=== PATIENT | female | born 1990 | race Caucasian/White ===

== ENCOUNTER 2017-01-20 07:22 | Emergency (ER) | payer BC, OTHER ==
[~2017-01-20] VITALS: Ht 162.6 cm; Wt 62.1 kg
[~2017-01-20 07:22] MED LIST: OMEP20TA62 PO
[2017-01-20] MEDS ORDERED: PANTOPRAZOLE 80 MG in SODIUM CHLORIDE 0.9% 100 ML IV SCH (07:43)
[2017-01-20] MEDS ORDERED: SODIUM CHLORIDE 0.9% 1,000 ML IV ONE (07:43)
[2017-01-20] MEDS ORDERED: PANTOPRAZOLE 80 MG in SODIUM CHLORIDE 0.9% 50 ML IVPB ONE (07:43)
[2017-01-20] MEDS ORDERED: SODIUM CHLORIDE FLUSH 10ML SYR IVF ONE (08:00)
[2017-01-20] MEDS ORDERED: SODIUM CHLORIDE 0.9% 1,000ML IVBOLUS ONE (08:00)
[2017-01-20 08:21] LABS: HEMOGLOBIN 14.4 g/dL (11.7-16.4)
[2017-01-20 08:32] LABS: ASPARTATE AMINO TRANSFERASE 12 U/L (15-37); BLOOD UREA NITROGEN 13 mg/dL (7-18)
[2017-01-20] MEDS ORDERED: ONDANSETRON 2MG/ML, 2ML IVPush ONE (09:30)
[2017-01-20] MEDS ORDERED: MAALOX/HYOSCYAMINE/LIDOCAINE 45 ML BOTTLE PO ONE (09:30)
[2017-01-20] MEDS ORDERED: ONDANSETRON 2MG/ML, 2ML ONE (09:32)
[2017-01-20] MEDS ORDERED: MAALOX/HYOSCYAMINE/LIDOCAINE 45 ML BOTTLE ONE (09:32)
[2017-01-20] MEDS ORDERED: PROPOFOL 10 MG/ML, 20ML ONE (11:11)
[2017-01-20] MEDS ORDERED: PROPOFOL 10 MG/ML, 20ML IVP ONE (11:30)
[2017-01-20 13:08] VITALS: BP 101/50
== END 2017-01-20 13:10 | disposition home or self-care (01) ==
LOC: ED 08:33
DX: K29.00 Acute gastritis without bleeding (principal)
CPT/HCPCS: 36415; 44360; 80053; 83690; 84703; 85025; 85610; 85730; 86677; 96365; 96366; 96375; 99152; 99153; 99285; C9113; J2405; J7030

== ENCOUNTER 2017-02-10 19:15 | Emergency (ER) | payer BC ==
[~2017-02-10] VITALS: Ht 162.6 cm; Wt 61.2 kg
[2017-02-10] MEDS ORDERED: ONDANSETRON 2MG/ML, 2ML IVPush ONE (19:30)
[2017-02-10] MEDS ORDERED: MORPHINE SULFATE 4 MG/ML, 1ML IVPush PRN (19:30)
[2017-02-10] MEDS ORDERED: SODIUM CHLORIDE FLUSH 10ML SYR IVF ONE (19:30)
[2017-02-10 19:56] LABS: HEMOGLOBIN 14.7 g/dL (11.7-16.4)
[2017-02-10 20:09] LABS: ASPARTATE AMINO TRANSFERASE 14 U/L (15-37); BLOOD UREA NITROGEN 8 mg/dL (7-18)
[2017-02-10] MEDS ORDERED: ONDANSETRON ODT 4 MG ONE (20:30)
[2017-02-10] MEDS ORDERED: HYDROmorphone 1 MG/ML, 1ML ONE (20:30)
[2017-02-10] MEDS ORDERED: ONDANSETRON ODT 4 MG PO ONE (20:30)
[2017-02-10] MEDS ORDERED: HYDROmorphone 1 MG/ML, 1ML IM ONE (20:30)
[2017-02-10 21:36] VITALS: BP 122/64
== END 2017-02-10 21:50 | disposition home or self-care (01) ==
LOC: ED 21:24
DX: R10.11 Right upper quadrant pain (principal); K25.7 Chronic gastric ulcer without hemorrhage or perforation; K26.7 Chronic duodenal ulcer without hemorrhage or perforation
CPT/HCPCS: 36415; 76700; 80053; 81003; 83690; 84703; 85025; 93005; 96372; 99285; J1170; Q0162

== ENCOUNTER → 2017-03-09 | Outpatient (CLI) | payer BC ==
[~2017-03-09] MED LIST changes: +OMNIPAQUE 350 MG/ML, 100ML BOTTLE ONE
== END | disposition home or self-care (01) ==
LOC: CFH 08:27
PROVIDERS: ATTEND Family Medicine
DX: R10.11 Right upper quadrant pain (principal)
CPT/HCPCS: 74177; Q9967

== ENCOUNTER → 2017-03-09 | Outpatient (CLI) | payer BC ==
[~2017-03-09] MED LIST changes: -OMNIPAQUE 350 MG/ML, 100ML BOTTLE ONE; +SINCALIDE (KINEVAC) 5 MCG ONE
== END | disposition home or self-care (01) ==
LOC: PETCFH 08:36
PROVIDERS: ATTEND Family Medicine
DX: R10.9 Unspecified abdominal pain (principal)
CPT/HCPCS: 78227; A9537; J2805

== ENCOUNTER 2017-03-16 14:32 | Emergency (ER) | payer BC ==
[~2017-03-16] VITALS: Ht 162.6 cm; Wt 62.5 kg
[~2017-03-16 14:32] MED LIST changes: -SINCALIDE (KINEVAC) 5 MCG ONE
[2017-03-16] MEDS ORDERED: SODIUM CHLORIDE 0.9% 1,000 ML IV ONE (15:40)
[2017-03-16] MEDS ORDERED: HYDROmorphone 1 MG/ML, 1ML ONE (15:50)
[2017-03-16] MEDS ORDERED: ONDANSETRON 2MG/ML, 2ML ONE (15:50)
[2017-03-16] MEDS ORDERED: HYDROmorphone 1 MG/ML, 1ML IVPush PRN (16:00)
[2017-03-16] MEDS ORDERED: SODIUM CHLORIDE 0.9% 1,000ML IVBOLUS ONE (16:00)
[2017-03-16] MEDS ORDERED: SODIUM CHLORIDE FLUSH 10ML SYR IVF ONE (16:00)
[2017-03-16] MEDS ORDERED: ONDANSETRON 2MG/ML, 2ML IVPush ONE (16:00)
[2017-03-16 16:30] LABS: ASPARTATE AMINO TRANSFERASE 8 U/L (15-37); BLOOD UREA NITROGEN 11 mg/dL (7-18)
[2017-03-16 16:34] VITALS: BP 120/73
== END 2017-03-16 17:32 | disposition home or self-care (01) ==
LOC: ED 17:12
DX: K80.50 Calculus of bile duct without cholangitis or cholecystitis without obstruction (principal)
CPT/HCPCS: 36415; 80053; 81003; 83690; 84703; 85025; 96361; 96374; 96375; 99285; J1170; J2405; J7030

== ENCOUNTER → 2017-03-30 | Outpatient (CLI) | payer BC ==
[~2017-03-30] MED LIST changes: +NONE PER PT
== END | disposition home or self-care (01) ==
LOC: STAR 14:48
PROVIDERS: ATTEND Surgery
DX: Z02.9 Encounter for administrative examinations, unspecified (principal)

== ENCOUNTER 2017-04-05 10:47 | Day surgery (SDC) | payer BC ==
[~2017-04-05] VITALS: Ht 165.1 cm; Wt 59.1 kg
[2017-04-05] MEDS ORDERED: BUPIVACAINE/PF 0.5% ONE (13:01)
[2017-04-05] MEDS ORDERED: BUPIVACAINE/PF-EPI 0.5% 1:200K ONE (13:01)
[2017-04-05] MEDS ORDERED: FENTANYL PF 100 MCG/2ML ONE ×2 (13:20→14:40)
[2017-04-05] MEDS ORDERED: DEXAMETHASONE 4 MG/ML, 5ML ONE (13:21)
[2017-04-05] MEDS ORDERED: PROPOFOL 10 MG/ML, 20ML ONE (13:21)
[2017-04-05] MEDS ORDERED: NEOSTIGMINE 1 MG/ML, 10ML ONE (13:21)
[2017-04-05] MEDS ORDERED: CEFAZOLIN 1,000 MG ONE (13:21)
[2017-04-05] MEDS ORDERED: SUCCINYLCHOLINE 20 MG/ML, 10ML ONE (13:21)
[2017-04-05] MEDS ORDERED: GLYCOPYRROLATE 0.2MG/1ML ONE (13:21)
[2017-04-05] MEDS ORDERED: ONDANSETRON 2MG/ML, 2ML ONE ×2 (13:21→14:41)
[2017-04-05] MEDS ORDERED: KETOROLAC 30 MG/1 ML ONE (13:21)
[2017-04-05] MEDS ORDERED: ROCURONIUM 10 MG/ML ONE (13:21)
[2017-04-05] MEDS ORDERED: OMNIPAQUE 350 MG/ML, 50 ML BOTTLE ONE (14:00)
[2017-04-05] MEDS ORDERED: ACETAMINOPHEN 650 MG/20.3 ML UDC ONE (14:40)
[2017-04-05] MEDS ORDERED: OXYcodone 5 MG/5 ML ORAL.SOL UDC ONE (14:41)
[2017-04-05] MEDS ORDERED: MEPERIDINE/PF 25MG/0.5ML ONE (14:41)
[2017-04-05] MEDS: FENTANYL PF 100 MCG/2ML IV PRN ×2 (14:50→15:00)
[2017-04-05] MEDS ORDERED: HYDROmorphone 1 MG/ML, 1ML ONE (15:03)
[2017-04-05] MEDS: HYDROmorphone 1 MG/ML, 1ML IV PRN ×3 (15:05→15:35)
[2017-04-05] MEDS ORDERED: SCOPOLAMINE PATCH, 1.5MG PATCH.TD72 TD ONE (16:26)
[2017-04-05] MEDS ORDERED: PROMETHAZINE 25 MG SUPP PR ONE (16:28)
[2017-04-05] MEDS: HYDROcodone/APAP 5/325 TABLET PO PRN ×2 (17:05→20:30)
[2017-04-05] MEDS ORDERED: HYDROcodone/APAP 5/325 TABLET ONE (20:25)
[2017-04-06] MEDS ORDERED: MIDAZOLAM 1 MG/ML, 2ML IV PRN (20:00)
[2017-04-06] MEDS ORDERED: ACETAMINOPHEN 325 MG TABLET PO PRN (20:00)
[2017-04-06] MEDS ORDERED: OXYcodone 5 MG/5 ML ORAL.SOL UDC PO PRN (20:00)
[2017-04-06] MEDS ORDERED: MEPERIDINE/PF 25MG/0.5ML IVPush PRN (20:00)
[2017-04-06] MEDS ORDERED: ONDANSETRON 2MG/ML, 2ML IVPush PRN (20:00)
[2017-04-07] MEDS ORDERED: PROMETHAZINE 25 MG SUPP PR ONE (14:30)
[2017-04-07] MEDS: LACTATED RINGERS 1,000 ML IV SCH ×2 (14:30→14:35)
[2017-04-07] MEDS ORDERED: SCOPOLAMINE PATCH, 1.5MG PATCH.TD72 TD ONE (14:30)
[2017-04-07] MEDS ORDERED: HYDROcodone/APAP 5/325 TABLET PO PRN (15:00)
== END 2017-04-05 21:20 | disposition home or self-care (01) ==
LOC: OR 10:47
PROVIDERS: ATTEND Surgery
DX: K81.9 Cholecystitis, unspecified (principal); K82.8 Other specified diseases of gallbladder; E80.6 Other disorders of bilirubin metabolism; Z72.89 Other problems related to lifestyle; Z83.49 Family history of other endocrine, nutritional and metabolic diseases; Z83.79 Family history of other diseases of the digestive system
CPT/HCPCS: 36415; 47563; 74300; 84703; 88304; J0330; J0690; J1100; J1170; J1885; J2175; J2405; J2704; J2710; J3010; J3490; Q9967

== ENCOUNTER 2018-06-13 21:07 | Emergency (ER) | payer BC ==
[~2018-06-13 21:07] MED LIST changes: +PRENATAL PO
[2018-06-13] MEDS ORDERED: SODIUM CHLORIDE FLUSH 10ML SYR IVF ONE (22:00)
[2018-06-13 22:03] LABS: BASOPHILS # (AUTO) 0.02 x10^3/uL (0-0.1); BASOPHILS % (AUTO) 0 % (0-1); EOSINOPHILS # (AUTO) 0.11 x10^3/uL (0-0.4); EOSINOPHILS % (AUTO) 1 % (1-7); LYMPHOCYTES # (AUTO) 1.47 x10^3/uL (1-3.4); LYMPHOCYTES % (AUTO) 12 % (22-44); MD NO; MEAN CORPUSCULAR HEMOGLOBIN 30.9 pg (27.0-34.8); MEAN CORPUSCULAR HGB CONC 34.5 g/dL (32.4-35.8); MEAN CORPUSCULAR VOLUME 89.4 fL (80-100); MEAN PLATELET VOLUME 8.7 fL (7.4-10.4); MONOCYTES # (AUTO) 0.44 x10^3/uL (0.2-0.8); MONOCYTES % (AUTO) 4 % (2-9); NEUTROPHILS # (AUTO) 9.79 x10^3/uL (1.8-6.8); NEUTROPHILS % (AUTO) 83 % (42-75); PLATELET COUNT 275 x10^3/uL (130-400); RED BLOOD COUNT 3.69 x10^6/uL (3.82-5.3); RED CELL DISTRIBUTION WIDTH 12.8 % (9.6-15.2)
[2018-06-13 22:11] LABS: ANION GAP 5 mmol/L (5-15); CALCIUM 8.7 mg/dL (8.5-10.1); CHLORIDE 111 mmol/L (98-107)
[2018-06-13 22:16] LABS: ALANINE AMINOTRANSFERASE 27 U/L (12-78); ALKALINE PHOSPHATASE 45 U/L (45-117); BILIRUBIN,TOTAL 0.4 mg/dL (0.2-1.0); TOTAL PROTEIN 6.6 g/dL (6.4-8.2)
[2018-06-13 22:17] LABS: MICROSCOPIC NOT IND
[2018-06-13 22:21] LABS: CULTURE INDICATED? NO
[2018-06-13 23:26] VITALS: BP 115/62
== END 2018-06-14 00:07 | disposition home or self-care (01) ==
LOC: ED 22:34
DX: O26.892 Other specified pregnancy related conditions, second trimester (principal); R10.30 Lower abdominal pain, unspecified; R11.0 Nausea; Z3A.17 17 weeks gestation of pregnancy
CPT/HCPCS: 36415; 76815; 80053; 81003; 83690; 85025; 86901; 99285

== ENCOUNTER 2018-09-14 18:34 | Outpatient (CLI) | payer BC ==
[~2018-09-14] VITALS: Ht 165.1 cm; Wt 86.0 kg
[2018-09-14 19:27] LABS: MICROSCOPIC INDICATED
== END 2018-09-14 20:23 | disposition home or self-care (01) ==
LOC: LDOP 18:34
PROVIDERS: ATTEND Obstetrics & Gynecology
DX: O26.893 Other specified pregnancy related conditions, third trimester (principal); R25.2 Cramp and spasm; Z3A.30 30 weeks gestation of pregnancy
CPT/HCPCS: 36415; 59025; 81001; 82731; 87086; 99211; G0463

== ENCOUNTER 2018-10-16 14:23 | Outpatient (CLI) | payer BC ==
[~2018-10-16] VITALS: Ht 165.1 cm; Wt 89.5 kg
[2018-10-16 15:09] VITALS: BP 139/75
[2018-10-16 15:32] LABS: MICROSCOPIC INDICATED
[2018-10-16] MEDS ORDERED: CYCL5TAB PO (15:35)
[2018-10-16] MEDS ORDERED: NITR100C56 PO (15:56)
== END 2018-10-16 16:10 | disposition home or self-care (01) ==
LOC: LDOP 14:23
PROVIDERS: ATTEND Obstetrics & Gynecology
DX: O23.43 Unspecified infection of urinary tract in pregnancy, third trimester (principal); O62.9 Abnormality of forces of labor, unspecified; O36.8130 Decreased fetal movements, third trimester, not applicable or unspecified; Z3A.35 35 weeks gestation of pregnancy
CPT/HCPCS: 59025; 81001; 87086; 99211; G0463

== ENCOUNTER 2018-10-31 11:53 | Outpatient (CLI) | payer BC ==
[~2018-10-31] VITALS: Ht 165.1 cm; Wt 90.9 kg
[~2018-10-31 11:53] MED LIST changes: +CYCL5TAB PO; +NITR100C56 PO
[2018-10-31 12:18] VITALS: BP 129/83
[2018-10-31 12:47] LABS: MICROSCOPIC INDICATED
== END 2018-10-31 13:30 | disposition home or self-care (01) ==
LOC: LDOP 11:53
PROVIDERS: ATTEND Obstetrics & Gynecology
DX: O36.8130 Decreased fetal movements, third trimester, not applicable or unspecified (principal); O26.893 Other specified pregnancy related conditions, third trimester; R10.9 Unspecified abdominal pain; R11.0 Nausea; Z3A.37 37 weeks gestation of pregnancy
CPT/HCPCS: 59025; 81001; 87086; 99211; G0463

== ENCOUNTER → 2018-11-22 | Outpatient (CLI) | payer BC ==
[~2018-11-22] VITALS: Ht 165.1 cm; Wt 95.5 kg
[2018-11-22 12:32] VITALS: BP 140/98
[2018-11-22 12:52] LABS: BASOPHILS # (AUTO) 0.01 x10^3/uL (0-0.1); BASOPHILS % (AUTO) 0 % (0-1); EOSINOPHILS # (AUTO) 0.02 x10^3/uL (0-0.4); EOSINOPHILS % (AUTO) 0 % (1-7); LYMPHOCYTES # (AUTO) 1.13 x10^3/uL (1-3.4); LYMPHOCYTES % (AUTO) 15 % (22-44); MD NO; MEAN CORPUSCULAR HEMOGLOBIN 29.1 pg (27.0-34.8); MEAN CORPUSCULAR HGB CONC 33.9 g/dL (32.4-35.8); MEAN CORPUSCULAR VOLUME 85.7 fL (80-100); MONOCYTES # (AUTO) 0.31 x10^3/uL (0.2-0.8); MONOCYTES % (AUTO) 4 % (2-9); NEUTROPHILS # (AUTO) 6.14 x10^3/uL (1.8-6.8); NEUTROPHILS % (AUTO) 81 % (42-75); PLATELET COUNT 223 x10^3/uL (130-400); RED CELL DISTRIBUTION WIDTH 14.1 % (9.6-15.2)
[2018-11-22 12:58] LABS: ANION GAP 9 mmol/L (5-15); CALCIUM 9.1 mg/dL (8.5-10.1); CHLORIDE 104 mmol/L (98-107)
[2018-11-22 13:00] LABS: CREATININE,URINE RANDOM 21.9 mg/dL
[2018-11-22 13:01] LABS: ALANINE AMINOTRANSFERASE 14 U/L (12-78); ALKALINE PHOSPHATASE 172 U/L (45-117); BILIRUBIN,TOTAL 0.7 mg/dL (0.2-1.0); CREATININE 0.67 mg/dL (0.55-1.02); TOTAL PROTEIN 7.2 g/dL (6.4-8.2)
[2018-11-22 13:22] LABS: MICROSCOPIC INDICATED
== END | disposition home or self-care (01) ==
LOC: LDOP 12:05
PROVIDERS: ATTEND Obstetrics & Gynecology
DX: O13.3 Gestational [pregnancy-induced] hypertension without significant proteinuria, third trimester (principal); Z3A.40 40 weeks gestation of pregnancy
CPT/HCPCS: 36415; 59025; 80053; 81001; 82570; 84156; 84550; 85025; 87086; 99211; G0463

== ENCOUNTER 2018-11-26 17:18 | Inpatient (IN) | payer BC ==
[~2018-11-26] VITALS: Ht 162.6 cm; Wt 90.9 kg
[2018-11-26] MEDS ORDERED: OXYTOCIN 30U/ 0.9% NaCL 500ML 500 ML IV PRN (17:52)
[2018-11-26] MEDS ORDERED: OXYTOCIN 30U/ 0.9% NaCL 500ML 500 ML IV ONE (17:52)
[2018-11-26] MEDS ORDERED: FENTANYL PF 100 MCG/2ML IV PRN (18:00)
[2018-11-26] MEDS ORDERED: CALCIUM CARBONATE 500 MG TAB.CHEW PO PRN (18:00)
[2018-11-26] MEDS ORDERED: FENTANYL PF 100 MCG/2ML IVPush PRN (18:00)
[2018-11-26] MEDS ORDERED: ONDANSETRON 2MG/ML, 2ML IVPush PRN (18:00)
[2018-11-26] MEDS: LACTATED RINGERS 1,000 ML IV SCH (18:08)
[2018-11-26] MEDS ORDERED: MISOPROSTOL 25 MCG TABLET ONE ×2 (18:14→21:06)
[2018-11-26] MEDS: MISOPROSTOL 25 MCG TABLET VG PRN ×2 (18:15→21:12)
[2018-11-26 18:26] LABS: BASOPHILS # (AUTO) 0.03 x10^3/uL (0-0.1); BASOPHILS % (AUTO) 0 % (0-1); EOSINOPHILS # (AUTO) 0.05 x10^3/uL (0-0.4); EOSINOPHILS % (AUTO) 1 % (1-7); LYMPHOCYTES # (AUTO) 1.27 x10^3/uL (1-3.4); LYMPHOCYTES % (AUTO) 16 % (22-44); MD NO; MEAN CORPUSCULAR HEMOGLOBIN 29.2 pg (27.0-34.8); MEAN CORPUSCULAR HGB CONC 34.1 g/dL (32.4-35.8); MEAN CORPUSCULAR VOLUME 85.7 fL (80-100); MEAN PLATELET VOLUME 9.8 fL (7.4-10.4); MONOCYTES # (AUTO) 0.42 x10^3/uL (0.2-0.8); MONOCYTES % (AUTO) 6 % (2-9); NEUTROPHILS # (AUTO) 5.96 x10^3/uL (1.8-6.8); NEUTROPHILS % (AUTO) 77 % (42-75); PLATELET COUNT 229 x10^3/uL (130-400); RED BLOOD COUNT 3.83 x10^6/uL (3.82-5.3); RED CELL DISTRIBUTION WIDTH 14.2 % (9.6-15.2)
[2018-11-26] MEDS ORDERED: NEWBORN KIT ONE (18:28)
[2018-11-26 18:43] LABS: ALANINE AMINOTRANSFERASE 14 U/L (12-78); ALBUMIN 2.9 g/dL (3.4-5.0); ANION GAP 9 mmol/L (5-15); CALCIUM 8.6 mg/dL (8.5-10.1); CHLORIDE 110 mmol/L (98-107); CREATININE 0.73 mg/dL (0.55-1.02)
[2018-11-26 18:44] LABS: BILIRUBIN, DIRECT < 0.1 mg/dL (0.1-0.2)
[2018-11-26 18:46] LABS: ALKALINE PHOSPHATASE 177 U/L (45-117); BILIRUBIN,TOTAL 0.4 mg/dL (0.2-1.0); TOTAL PROTEIN 6.9 g/dL (6.4-8.2)
[2018-11-26 19:36] VITALS: BP 132/75
[2018-11-27] MEDS ORDERED: OXYTOCIN 30U/ 0.9% NaCL 500ML 500 ML ONE (02:26)
[2018-11-27] MEDS ORDERED: MISOPROSTOL 200 MCG TABLET ONE (02:26)
[2018-11-27] MEDS ORDERED: LIDOCAINE 1%, 10ML ONE (02:27)
[2018-11-27] MEDS: FENTANYL/BUPIV./NS/PF 250 ML EPIDCONT SCH (02:35)
[2018-11-27] MEDS ORDERED: OXYTOCIN 30U/ 0.9% NaCL 500ML 500 ML IV PRN (02:56)
[2018-11-27] MEDS ORDERED: FENTANYL PF 500 MCG, BUPIVACAINE/PF 0.5%, 30ML 62.5 ML in SODIUM CHLORIDE 0.9% 177.5 ML EPIDCONT SCH ×2 (03:00→10:47)
[2018-11-27] MEDS ORDERED: FENTANYL PF 100 MCG/2ML ONE (06:04)
[2018-11-27] MEDS: D5%-LACTATED RINGERS 1,000 ML IV SCH ×4 (08:16→19:43)
[2018-11-27] MEDS: LACTATED RINGERS 1,000 ML IV SCH ×5 (09:52→22:45)
[2018-11-27] MEDS ORDERED: BUPIVACAINE 0.25% ONE (10:28)
[2018-11-27] MEDS ORDERED: LACTATED RINGERS 1,000 ML IV SCH (10:47)
[2018-11-27] MEDS ORDERED: LACTATED RINGERS 1,000 ML IVBOLUS PRN (11:00)
[2018-11-27] MEDS ORDERED: ONDANSETRON 2MG/ML, 2ML ONE (19:02)
[2018-11-27] MEDS ORDERED: ACETAMINOPHEN 325 MG TABLET ONE (20:44)
[2018-11-27] MEDS ORDERED: SODIUM CITRATE/CITRIC ACID 30 ML UDC ONE (22:41)
[2018-11-27] MEDS ORDERED: METOCLOPRAMIDE 5 MG/ML, 2ML ONE (22:41)
[2018-11-27] MEDS: OXYTOCIN 30U/ 0.9% NaCL 500ML 500 ML IV SCH (22:45)
[2018-11-27] MEDS ORDERED: morphine SULFATE 10 MG/ML, 1ML IVPush PRN (23:00)
[2018-11-27] MEDS ORDERED: OXYcodone/APAP 5/325MG TABLET PO PRN (23:00)
[2018-11-27] MEDS ORDERED: MISOPROSTOL 200 MCG TABLET PR PRN (23:00)
[2018-11-28] MEDS: LACTATED RINGERS 1,000 ML IV SCH ×6 (00:04→22:45)
[2018-11-28 01:25] VITALS: BP 112/72
[2018-11-28] MEDS: KETOROLAC 30 MG/1 ML IV PRN ×4 (02:18→20:01)
[2018-11-28] MEDS: FENTANYL/BUPIV./NS/PF 250 ML EPIDCONT SCH (02:35)
[2018-11-28 05:30] VITALS: BP 107/68
[2018-11-28] MEDS: CEFAZOLIN PMX 2GM/50ML 50 ML IVPB SCH ×2 (06:53→14:54)
[2018-11-28 07:24] LABS: HEMOGRAM NOTE RECHECKED; MEAN CORPUSCULAR HEMOGLOBIN 28.1 pg (27.0-34.8); MEAN CORPUSCULAR HGB CONC 32.7 g/dL (32.4-35.8); MEAN CORPUSCULAR VOLUME 85.9 fL (80-100); MEAN PLATELET VOLUME 9.8 fL (7.4-10.4); PLATELET COUNT 177 x10^3/uL (130-400); RED CELL DISTRIBUTION WIDTH 14.1 % (9.6-15.2)
[2018-11-28 08:00] VITALS: BP 116/75
[2018-11-28 08:20] LABS: MD YES
[2018-11-28 08:21] LABS: <PLATELET ESTIMATE> ADEQUATE; <PLT MORPHOLOGY> NORMAL PLT MORPH; <RBC MORPHOLOGY> NORMAL; BAND#(MANUAL) 4.08 x10^3/uL; BANDS%(MANUAL) 24 % (0-7); LYMPH#(MANUAL) 1.02 x10^3/uL (1-3.4); LYMPHS% (MANUAL) 6 % (22-44); MONOS#(MANUAL) 0.34 x10^3/uL (0.3-2.7); MONOS% (MANUAL) 2 % (2-9); SEG#(MANUAL) 11.56 x10^3/uL (1.8-6.8); SEGS% (MANUAL) 68 % (42-75)
[2018-11-28] MEDS: OXYTOCIN 30U/ 0.9% NaCL 500ML 500 ML IV SCH ×2 (08:45→18:45)
[2018-11-28] MEDS: OXYcodone IR 5MG TABLET PO PRN ×4 (08:54→20:57)
[2018-11-28] MEDS ORDERED: ONDANSETRON 2MG/ML, 2ML IVPush PRN (09:00)
[2018-11-28] MEDS: PRENATAL VIT/IRON/FA 1 EACH TABLET PO SCH (09:00)
[2018-11-28] MEDS: SIMETHICONE 80 MG CHEW TAB PO PRN (09:16)
[2018-11-28 12:00] VITALS: BP 101/65
[2018-11-28 16:00] VITALS: BP 123/81
[2018-11-28 19:45] VITALS: BP 116/80
[2018-11-28] MEDS: DOCUSATE 100 MG CAPSULE PO PRN (20:01)
[2018-11-29] MEDS: OXYcodone IR 5MG TABLET PO PRN ×4 (00:51→18:35)
[2018-11-29] MEDS: FENTANYL/BUPIV./NS/PF 250 ML EPIDCONT SCH (02:35)
[2018-11-29] MEDS: OXYTOCIN 30U/ 0.9% NaCL 500ML 500 ML IV SCH ×2 (04:45→14:45)
[2018-11-29] MEDS: LACTATED RINGERS 1,000 ML IV SCH ×5 (04:45→22:45)
[2018-11-29] MEDS: IBUPROFEN 600 MG TABLET PO PRN ×3 (04:48→18:35)
[2018-11-29 08:00] VITALS: BP 125/86
[2018-11-29] MEDS: DOCUSATE 100 MG CAPSULE PO PRN ×2 (08:04→23:08)
[2018-11-29] MEDS: PRENATAL VIT/IRON/FA 1 EACH TABLET PO SCH (08:05)
[2018-11-29] MEDS: SIMETHICONE 80 MG CHEW TAB PO PRN ×2 (17:12→23:08)
[2018-11-29 18:55] VITALS: BP 139/89
[2018-11-30] MEDS: OXYcodone IR 5MG TABLET PO PRN ×4 (00:27→19:11)
[2018-11-30] MEDS: IBUPROFEN 600 MG TABLET PO PRN ×4 (00:27→19:10)
[2018-11-30] MEDS: LACTATED RINGERS 1,000 ML IV SCH ×4 (00:45→22:45)
[2018-11-30] MEDS: OXYTOCIN 30U/ 0.9% NaCL 500ML 500 ML IV SCH ×3 (00:45→20:45)
[2018-11-30 04:42] VITALS: BP 110/70
[2018-11-30] MEDS: SIMETHICONE 80 MG CHEW TAB PO PRN ×3 (06:33→19:11)
[2018-11-30 08:00] VITALS: BP 124/82
[2018-11-30] MEDS: PRENATAL VIT/IRON/FA 1 EACH TABLET PO SCH (09:00)
[2018-11-30] MEDS: DOCUSATE 100 MG CAPSULE PO PRN ×2 (12:48→19:10)
[2018-11-30 19:35] VITALS: BP 114/61
[2018-12-01] MEDS: IBUPROFEN 600 MG TABLET PO PRN ×3 (01:16→13:29)
[2018-12-01] MEDS: OXYcodone IR 5MG TABLET PO PRN ×2 (01:17→07:50)
[2018-12-01] MEDS: OXYTOCIN 30U/ 0.9% NaCL 500ML 500 ML IV SCH (06:45)
[2018-12-01] MEDS: LACTATED RINGERS 1,000 ML IV SCH (06:45)
[2018-12-01] MEDS: DOCUSATE 100 MG CAPSULE PO PRN (07:50)
[2018-12-01] MEDS: SIMETHICONE 80 MG CHEW TAB PO PRN ×2 (07:50→13:30)
[2018-12-01] MEDS: PRENATAL VIT/IRON/FA 1 EACH TABLET PO SCH (07:50)
[2018-12-01 07:53] VITALS: BP 134/90
[2018-12-01] MEDS ORDERED: IBUP-1222 PO (13:37)
[2018-12-01] MEDS ORDERED: OXYC-302 PO (13:37)
== END 2018-12-01 18:03 | disposition home or self-care (01) | DRG 787 ==
LOC: LDOP 17:18 → LDIP 18:00 → 2NW 11-28 01:08
PROVIDERS: ADMIT Obstetrics & Gynecology; ATTEND Obstetrics & Gynecology
PROC: 10D00Z1 Extraction of Products of Conception, Low, Open Approach (ICD-10-PCS; principal; 2018-11-27)
DX: O36.8130 Decreased fetal movements, third trimester, not applicable or unspecified (principal); O75.2 Pyrexia during labor, not elsewhere classified; O13.4 Gestational [pregnancy-induced] hypertension without significant proteinuria, complicating childbirth; O62.1 Secondary uterine inertia; O76 Abnormality in fetal heart rate and rhythm complicating labor and delivery; Z3A.41 41 weeks gestation of pregnancy; Z37.0 Single live birth; Z90.49 Acquired absence of other specified parts of digestive tract
CPT/HCPCS: 36415; J7121; 80053; 82248; 82803; 84550; 85025; 86850; 86900; 88307; G0378; J0690; J1170; J1885; J2405; J3010; J3490; J2590; J7120

== ENCOUNTER → 2019-05-02 | Outpatient (CLI) | payer BC ==
[~2019-05-02] MED LIST changes: +IBUP-1222 PO; +OXYC-302 PO
== END | disposition home or self-care (01) ==
LOC: CFH 15:28
PROVIDERS: ATTEND Family Medicine
DX: E05.90 Thyrotoxicosis, unspecified without thyrotoxic crisis or storm (principal)
CPT/HCPCS: 76536

== ENCOUNTER 2020-12-25 08:24 | Emergency (ER) | payer BC ==
[~2020-12-25] VITALS: Ht 165.1 cm; Wt 70.0 kg
[~2020-12-25 08:24] MED LIST changes: -OXYC-302 PO; +OXYC1TAB14 PO
[2020-12-25] MEDS ORDERED: LEVO88TA2 PO (08:46)
--- NOTE | 2020-12-25 08:48 | NUR ---
RN and PA assessments completed with med rec finished. Call light in reach, placed on bedside monitor and awaiting MD orders.
[2020-12-25] MEDS ORDERED: ASPIRIN 81 MG TABLET CHEW PO ONE (09:00)
[2020-12-25] MEDS ORDERED: ASPIRIN 81 MG TABLET CHEW ONE (09:10)
--- NOTE | 2020-12-25 09:13 | NUR ---
ASA given and PCXR being completed now.
--- NOTE | 2020-12-25 09:25 | NUR ---
Pt taken off monitor for use of restroom. Request for clean catch UA sample made with instructions verbalized as understood, just in case UA is needed in the future during her stay today.
[2020-12-25 09:28] LABS: BASOPHILS % (AUTO) 1 % (0-1); EOSINOPHILS % (AUTO) 1 % (1-7); LYMPHOCYTES % (AUTO) 25 % (22-44); MEAN CORPUSCULAR HEMOGLOBIN 30.7 pg (27.0-34.8); MEAN CORPUSCULAR HGB CONC 34.7 g/dL (32.4-35.8); MEAN PLATELET VOLUME 8.9 fL (7.4-10.4); MONOCYTES % (AUTO) 5 % (2-9); NEUTROPHILS % (AUTO) 68 % (42-75); PLATELET COUNT 232 x10^3/uL (130-400); RED BLOOD COUNT 4.59 x10^6/uL (3.82-5.3); RED CELL DISTRIBUTION WIDTH 12.4 % (9.6-15.2)
--- NOTE | 2020-12-25 09:29 | NUR ---
Pt assisted back to bed and placed back onto monitor. UA sample on counter if needed.
[2020-12-25 09:33] LABS: MD NO
[2020-12-25 09:39] LABS: ALBUMIN 4.3 g/dL (3.4-5.0); ANION GAP 6 mmol/L (5-15); CALCIUM 9.2 mg/dL (8.5-10.1); CHLORIDE 112 mmol/L (98-107); CREATININE 0.86 mg/dL (0.55-1.02)
[2020-12-25 09:43] LABS: T4 (THYROXINE) 10.4 mcg/dL (4.8-13.9); TROPONIN I < 0.015 ng/mL (0.000-0.045)
[2020-12-25 09:51] LABS: FREE T4 (FREE THYROXINE) 1.18 ng/dL (0.76-1.46)
--- NOTE | 2020-12-25 11:01 | NUR ---
Went into room to start d/c process and instructions. Pt states Dr. Hodge was call away from bedside while discussing plan of care and results and she would like to hold off before hearing everything MD wanted to say first. D/C paperwork left at bedside and VS reassessed at this time.
[2020-12-25 11:02] VITALS: BP 110/67
--- NOTE | 2020-12-25 11:12 | NUR ---
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 Pt states understanding of all other d/c instructions and is dressing for departure now.
== END 2020-12-25 11:14 | disposition home or self-care (01) ==
LOC: ED 09:38
DX: R07.89 Other chest pain (principal); E03.9 Hypothyroidism, unspecified; I35.0 Nonrheumatic aortic (valve) stenosis; R06.02 Shortness of breath; R11.0 Nausea; R00.0 Tachycardia, unspecified
CPT/HCPCS: 36415; 71045; 80048; 82040; 83880; 84436; 84439; 84481; 84484; 84703; 85025; 85379; 93005; 99285

== ENCOUNTER 2021-02-12 16:32 | Emergency (ER) | payer BC ==
[~2021-02-12] VITALS: Ht 165.1 cm; Wt 70.8 kg
[~2021-02-12 16:32] MED LIST changes: +LEVO88TA2 PO
[2021-02-12] MEDS ORDERED: METOCLOPRAMIDE 5 MG/ML, 2ML IVPush ONE (17:30)
[2021-02-12] MEDS ORDERED: DIPHENHYDRAMINE 50 MG/ML, 1ML IVPush ONE (17:30)
[2021-02-12] MEDS ORDERED: SODIUM CHLORIDE FLUSH 10ML SYR IVF ONE (17:30)
[2021-02-12] MEDS ORDERED: SODIUM CHLORIDE 0.9% 1,000ML IVBOLUS ONE (17:30)
[2021-02-12] MEDS ORDERED: KETOROLAC 30 MG/1 ML IVPush ONE (17:30)
[2021-02-12] MEDS ORDERED: METOCLOPRAMIDE 5 MG/ML, 2ML ONE (17:36)
[2021-02-12] MEDS ORDERED: KETOROLAC 30 MG/1 ML ONE (17:36)
[2021-02-12] MEDS ORDERED: DIPHENHYDRAMINE 50 MG/ML, 1ML ONE (17:36)
--- NOTE | 2021-02-12 18:05 | NUR ---
[employer] VACCINE ON WEDNESDAY. FLU LIKE SX OVER WEEKEND. STARTING YESTERDAY, L CALF PAIN, LIGHT HEADEDNESS, NAVA, BLURRED VISION AND EYE TWITCHING. HX OF TIM. EVALUATED. PT ATTACHED TO MONITORS. VSS. QUINTANILLA.
[2021-02-12 18:18] LABS: BASOPHILS % (AUTO) 1 % (0-1); EOSINOPHILS % (AUTO) 1 % (1-7); LYMPHOCYTES % (AUTO) 32 % (22-44); MEAN PLATELET VOLUME 8.8 fL (7.4-10.4); MONOCYTES % (AUTO) 4 % (2-9); NEUTROPHILS % (AUTO) 62 % (42-75); PLATELET COUNT 257 x10^3/uL (130-400); RED BLOOD COUNT 4.95 x10^6/uL (3.82-5.3); RED CELL DISTRIBUTION WIDTH 12.2 % (9.6-15.2)
[2021-02-12 18:21] LABS: MD NO
[2021-02-12 18:26] LABS: ALBUMIN 5.1 g/dL (3.4-5.0); ANION GAP 5 mmol/L (5-15); CALCIUM 9.9 mg/dL (8.5-10.1); CHLORIDE 106 mmol/L (98-107); CREATININE 0.81 mg/dL (0.55-1.02)
--- NOTE | 2021-02-12 18:34 | NUR ---
PT BACK FROM CT. VSS. STATES SHE "FEELS OUT OF IT"
--- NOTE | 2021-02-12 18:52 | NUR ---
report given to Sveta ZAVALA RN.
--- NOTE | 2021-02-12 18:52 | NUR ---
BEDSIDE REPORT FROM [facility] AT THIS TIME
--- NOTE | 2021-02-12 19:05 | NUR ---
ERP TO BEDSIDE FOR RCK AT THIS TIME
[2021-02-12 21:13] VITALS: BP 104/68
--- NOTE | 2021-02-12 21:21 | NUR ---
Patient/Caregiver given discharge instructions and they have confirmed that they understand the instructions. Patient ambulatory with steady gait.
== END 2021-02-12 21:54 | disposition home or self-care (01) ==
LOC: ED 18:59
DX: G44.219 Episodic tension-type headache, not intractable (principal); M79.10 Myalgia, unspecified site
CPT/HCPCS: 36415; 70470; 80048; 82040; 85025; 93971; 96361; 96374; 96375; 99285; J1200; J1885; J2765; J7030